=== PATIENT | male | born 1975 | race Two or more races ===

== ENCOUNTER → 2017-07-13 | Day surgery (SDC) | payer OTHER ==
[~2017-07-13] VITALS: Ht 177.8 cm; Wt 92.5 kg
[2017-07-13] VITALS (9 sets, daily range): BP systolic 111–134; BP diastolic 63–87
[~2017-07-13] MED LIST: AMLODIPINE BESYL5 MG ORAL; Cyclopentolate 1% Opth Sol 2ml LEFT EYE ONE; DiphenhydrAMINE 50mg/ml Inj IVP PRN; Ketorolac 30mg Inj IV PRN; LR 1000ml 1,000 ML IVLG SCH; Meperidine 50mg/ml Inj(FOR RIGORS ONLY) IV PRN; Norco 5mg/325mg tab ORAL PRN; POTASSIUM CHLO10 ME3 ORAL; Phenylephrine 2.5% Op 2ml Soln LEFT EYE ONE; Tropicamide 1% Opth 15ml Soln LEFT EYE ONE
--- NOTE | 2017-07-13 14:22 | Emergency Room Report ---
History of Present Illness General Chief Complaint: Eye Problems Source: Patient Present Illness HPI 42 yo male patient presents ER complaining of detached left retina. Patient was sent to ER by his physician for same day surgery. patient reports that he began seeing floaters on Wednesday while he was in [place]. Patient reports a history of seeing floaters. Patient reports that he came home Wednesday night and on Wednesday noticed floaters had increased. Patient reports that he went to [facility] on Wednesday. Patient reports that he was seen by chef de froid at that time. Patient reports being told that the back portion of his retina has folded down "like a taco". Reports been given numerous eyedrops during that time. Patient reports he was instructed to reports to [facility] for same day surgery. Patient denies fever, chest pain , shortness of breath. Patient reports history of hypertension, currently being treated with medications.. Allergies: Coded Allergies: No Known Allergies (Unverified , 07/13/17) Patient History Past Medical History: see triage record Reviewed Nursing Documentation: PMH: Agreed; PSxH: Agreed Nursing Documentation-PMH Hx Hypertension: Yes Review of Systems All Other Systems: negative except mentioned in HPI Physical Exam Vital Signs Date Time Temp Pulse Resp B/P (MAP) Pulse Ox O2 Delivery O2 Flow Rate FiO2 07/13/17 14:14 98.3 89 17 138/100 97 Room Air 98.2 Sp02 EP Interpretation: reviewed, normal General Appearance: well appearing, no apparent distress, alert, GCS 15, non- toxic Head: normocephalic, atraumatic Eyes: bilateral eye normal inspection, bilateral eye PERRL Neck: full range of motion Respiratory: lungs clear, normal breath sounds, no rhonchi, no respiratory distress, no accessory muscle use, no wheezing, speaking full sentences Cardiovascular #1: regular rate, rhythm, no edema Musculoskeletal: back normal, digits/nails normal, gait/station normal, normal range of motion, non-tender Neurologic: alert, oriented x3, responsive, motor strength/tone normal, sensory intact Psychiatric: mood/affect normal Medical Decision Making PA Attestation Dr. Maurer is my supervising Physician whom patient management has been discussed with. Diagnostic Impression: Primary Impression: Detached retina ER Course Pt. presents to the ED c/o detached retina in left eye. Vital signs: are WNL, pt. is afebrile ER COURSE: Spoke with patient's doctor Dr. Becker. requesting that CBC BMP and eyedrops be ordered. Physician requesting cyclopentolate 1% and phenylephrine 2.5% be provided to patient. Dr. Becker requesting that patient begin having medication administered to left eye at 4:00PM prior to his surgery beginning.. Wants drops placed into left eye 3x prior to surgery. Reports that it will be same-day surgery. CBC unremarkable. CMP shows Potassium 2.9, will provide oral potassium in ER. patient reports he was diagnosed with low potassium levels and is currently taking potassium supplements at home, took 30 meQ potassium earlier today. will follow up outpatient with primary care provider for further treatment. Nurse began administering eyedrops at scheduled time. Given every 10 minutes. Patient has not eaten, was instructed not to eat today. Patient scheduled for OR today at [address] Maurer. Patient will be admitted to Dr. Becker. Patient admitted to surgery. - Please note that this Emergency Department Report was dictated using [employer] product technology software, occasionally this can lead to erroneous entry secondary to interpretation by the dictation equipment. Labs Test 07/13/17 14:40 White Blood Count 9.2 K/UL (4.8-10.8) Red Blood Count 5.26 M/UL (4.70-6.10) Hemoglobin 16.3 G/DL (14.2-18.0) Hematocrit 46.5 % (42.0-52.0) Mean Corpuscular Volume 88 FL (80-99) Mean Corpuscular Hemoglobin 30.9 PG (27.0-31.0) Mean Corpuscular Hemoglobin Concent 34.9 G/DL (32.0-36.0) Red Cell Distribution Width 11.7 % (11.6-14.8) Platelet Count 262 K/UL (150-450) Mean Platelet Volume 8.3 FL (6.5-10.1) Neutrophils (%) (Auto) 51.5 % (45.0-75.0) Lymphocytes (%) (Auto) 37.1 % (20.0-45.0) Monocytes (%) (Auto) 8.6 % (1.0-10.0) Eosinophils (%) (Auto) 1.6 % (0.0-3.0) Basophils (%) (Auto) 1.1 % (0.0-2.0) Sodium Level 142 MMOL/L (136-145) Potassium Level 2.9 MMOL/L (3.5-5.1) Chloride Level 102 MMOL/L (98-107) Carbon Dioxide Level 31 MMOL/L (21-32) Anion Gap 9 mmol/L (5-15) Blood Urea Nitrogen 10 mg/dL (7-18) Creatinine 0.8 MG/DL (0.55-1.30) Estimat Glomerular Filtration Rate > 60 mL/min (>60) Glucose Level 88 MG/DL (74-106) Calcium Level 9.2 MG/DL (8.5-10.1) Pro-B-Type Natriuretic Peptide 15 pg/mL (0-125) Last Vital Signs Date Time Temp Pulse Resp B/P (MAP) Pulse Ox O2 Delivery O2 Flow Rate FiO2 07/13/17 14:14 98.3 89 17 138/100 97 Room Air 98.2 Disposition: ADMITTED INPATIENT Condition: Serious Referrals: DONOVAN MALDONADO M.D. (REFERMD) (PCP) Sanchez Ho Jul 13, 2017 14:22
[2017-07-13 15:02] LABS: BASOPHILS % (AUTO) 1.1 % (0.0-2.0); EOSINOPHILS % (AUTO) 1.6 % (0.0-3.0); HEMATOCRIT 46.5 % (42.0-52.0); HEMOGLOBIN 16.3 G/DL (14.2-18.0); LYMPHOCYTES % (AUTO) 37.1 % (20.0-45.0); MEAN CORPUSCULAR VOLUME 88 FL (80-99); MONOCYTES % (AUTO) 8.6 % (1.0-10.0); NEUTROPHILS % (AUTO) 51.5 % (45.0-75.0); PLATELET COUNT 262 K/UL (150-450); RED BLOOD COUNT 5.26 M/UL (4.70-6.10); RED CELL DISTRIBUTION WIDTH 11.7 % (11.6-14.8); WHITE BLOOD COUNT 9.2 K/UL (4.8-10.8)
[2017-07-13 15:26] LABS: ANION GAP 9 mmol/L (5-15); BLOOD UREA NITROGEN 10 mg/dL (7-18); CALCIUM 9.2 MG/DL (8.5-10.1); CARBON DIOXIDE 31 MMOL/L (21-32); CHLORIDE 102 MMOL/L (98-107); CREATININE 0.8 MG/DL (0.55-1.30); POTASSIUM 2.9 MMOL/L (3.5-5.1); SODIUM 142 MMOL/L (136-145)
[2017-07-13] MEDS: NS w/KCl 40mEq 1,000 ML IV SCH ×2 (16:44→21:31)
--- NOTE | 2017-07-13 17:56 | Pre-Procedure Note/Attestation ---
Pre-Procedure Note/Attestation Complete Prior to Procedure Planned Procedure: left Procedure Narrative: 23G PPV/SB/EL/gas vs SO left eye Indications for Procedure Pre-Operative Diagnosis: giant retinal tear and detachment left eye Attestation I attest that I discussed the nature of the procedure; its benefits; risks and complications; and alternatives (and the risks and benefits of such alternatives ), prior to the procedure, with the patient (or the patient's legal patient intake representative). I attest that, if there was a reasonable possibility of needing a blood transfusion, the patient (or the patient's legal patient intake representative) was given the [facility] standardized written summary, pursuant to the Keanu Donna Blood Safety Act ([place] Health and Safety Code # 1645, as amended). I attest that I re-evaluated the patient just prior to the surgery and that there has been no change in the patient's H&P, except as documented below: HILARY CONKLIN M.D. Jul 13, 2017 17:56
--- NOTE | 2017-07-13 18:32 | Anethesia Preoperative Eval ---
Anesthesia Pre-op PMH/ROS General Date of Evaluation: Jul 13, 2017 Time of Evaluation: 17:31 Anesthesiologist: Nina ASA Score: ASA 2 Mallampati Score Class I : Soft palate, uvula, fauces, pillars visible Class II: Soft palate, uvula, fauces visible Class III: Soft palate, base of uvula visible Class IV: Only hard plate visible Mallampati Classification: Class II Surgeon: Rosita Diagnosis: L eye etinal detouchment Surgical Procedure: L eye sckleral buckle PPV laser treatment Anesthesia History: none Family History: no anesthesia problems Allergies: Coded Allergies: No Known Allergies (Unverified , 07/13/17) Medications: see eMAR Past Medical History Cardiovascular: Reports: HTN - mild; Denies: CAD, [place], valve dz, arrhythmia, other Pulmonary: Denies: asthma, COPD, OWEN, other Gastrointestinal/Genitourinary: Reports: GERD; Denies: CRI, ESRD, other Endocrine: Denies: DM, hypothyroidism, steroids, other HEENT: Denies: cataract (L), cataract (R), glaucoma, [place] (L), [place] (R), other Hematology/Immune: Denies: anemia, DVT, bleeding disorder, other Musculoskeletal/Integumentary: Denies: OA, RA, DJD, DDD, edema, other Other: other - overweight PMH Narrative: as above, changes in vision L eye since 07/11. PSxH Narrative: Vasectomy Anesthesia Pre-op Phys. Exam Physician Exam Last Vital Signs Date Time Temp Pulse Resp B/P (MAP) Pulse Ox O2 Delivery O2 Flow Rate FiO2 07/13/17 17:24 98.2 90 16 134/87 96 Room Air 98.2 Constitutional: NAD Neurologic: CN 2-12 intact Cardiovascular: RRR Respiratory: CTA Gastrointestinal: S/NT/ND Airway Exam Mallampati Score: Class II MO: full Neck: flexible Teeth: intact Dentures: no upper, no lower Anesthesia Pre-op A/P Labs Hematology Test 07/13/17 14:40 White Blood Count 9.2 K/UL (4.8-10.8) Red Blood Count 5.26 M/UL (4.70-6.10) Hemoglobin 16.3 G/DL (14.2-18.0) Hematocrit 46.5 % (42.0-52.0) Mean Corpuscular Volume 88 FL (80-99) Mean Corpuscular Hemoglobin 30.9 PG (27.0-31.0) Mean Corpuscular Hemoglobin Concent 34.9 G/DL (32.0-36.0) Red Cell Distribution Width 11.7 % (11.6-14.8) Platelet Count 262 K/UL (150-450) Mean Platelet Volume 8.3 FL (6.5-10.1) Neutrophils (%) (Auto) 51.5 % (45.0-75.0) Lymphocytes (%) (Auto) 37.1 % (20.0-45.0) Monocytes (%) (Auto) 8.6 % (1.0-10.0) Eosinophils (%) (Auto) 1.6 % (0.0-3.0) Basophils (%) (Auto) 1.1 % (0.0-2.0) Chemistry Test 07/13/17 14:40 Sodium Level 142 MMOL/L (136-145) Potassium Level 2.9 MMOL/L (3.5-5.1) L Chloride Level 102 MMOL/L (98-107) Carbon Dioxide Level 31 MMOL/L (21-32) Anion Gap 9 mmol/L (5-15) Blood Urea Nitrogen 10 mg/dL (7-18) Creatinine 0.8 MG/DL (0.55-1.30) Estimat Glomerular Filtration Rate > 60 mL/min (>60) Glucose Level 88 MG/DL (74-106) Calcium Level 9.2 MG/DL (8.5-10.1) Pro-B-Type Natriuretic Peptide 15 pg/mL (0-125) Studies Pre-op Studies: EKG - NSR Risk Assessment & Plan Assessment: ASA 2 Plan: GA with LMA + retro bulbar block by surgeon Status Change Before Surgery: No Pre-Antibiotics Drug: none DAYAN ZIEGLER M.D. Jul 13, 2017 18:32
--- NOTE | 2017-07-13 20:16 | Brief Operative Note ---
Immediate Post Operative Note Operative Note Chief Complaint: blurred vision Pre-op Diagnosis: giant retinal tear and detachment left eye Procedure: 23G PPV/SB/EL/SO left eye Post-op Diagnosis: same Post-op Diagnosis: same as pre-op Findings: consistent w/pre-op dx studies Surgeon: Rosita Anesthesia: general Specimen: none Complications: none Condition: stable Fluids: <500cc Estimated Blood Loss: none Drains: none Implant(s) used?: Yes HILARY CONKLIN M.D. Jul 13, 2017 20:16
--- NOTE | 2017-07-13 20:27 | Immediate Post-Op Evaluation ---
Immediate Post-Op Evalulation Immediate Post-Op Evalulation Procedure: L Eye scleral buckle, PPV silicon oil injection, laser treatment Date of Evaluation: Jul 13, 2017 Time of Evaluation: 20:26 IV Fluids: 400 Blood Products: none Estimated Blood Loss: min Urinary Output: none Blood Pressure Systolic: 114 Blood Pressure Diastolic: 73 Pulse Rate: 88 Respiratory Rate: 22 O2 Sat by Pulse Oximetry: 99 Temperature (Fahrenheit): 98.3 Pain Score (1-10): 1 Nausea: No Vomiting: No Complications none Patient Status: reacts, patent, none Hydration Status: adequate DAYAN ZIEGLER M.D. Jul 13, 2017 20:27
--- NOTE | 2017-07-13 21:15 | Operative Note - Dictated ---
DATE OF OPERATION: 07/13/2017 SURGEON: John Becker M.D. PREOPERATIVE DIAGNOSIS: Giant retinal tear and detachment, left eye. POSTOPERATIVE DIAGNOSIS: Giant retinal tear and detachment, left eye. NAME OF OPERATION: A 23-gauge pars plana vitrectomy, scleral buckle, endolaser, and silicone oil left eye. ANESTHESIA: Local. BLOOD LOSS: None. COMPLICATIONS: None. INDICATIONS: The patient is a 42-year-old male with a history of blurred vision in his left eye. He was found to have a giant retinal tear and detachment. The findings were discussed with the patient as well as risks, benefits, and alternatives to the above-named procedure. The patient wishes to proceed with surgery. The patient understands that the risks include, but are not limited to, loss of vision, loss of the eye. Informed consent was obtained. DESCRIPTION OF THE PROCEDURE: On the day of the procedure, the left eye was noted to be the operative eye and marked. The patient received three sets of the standard preoperative eye drops in the holding area. The patient was then brought to the operating room with appropriate anesthesia and monitors were placed. The left eye was again identified as the operative eye. During time-out, the operative eye was patched and shielded. The patient underwent general and endotracheal anesthesia administered by the anesthesiologist. An additional retrobulbar block consisting of a 1:1 mixture of 2% lidocaine without epinephrine and 0.75% bupivacaine was administered. The operative eye was then prepped and draped in the usual sterile ophthalmic fashion. A lid speculum was placed in the operative eye. A 360-degree conjunctival peritomy was then performed with nasal and temporal relaxing incisions. The Tenon's capsule was retracted using Ortiz tenotomy scissors. The rectus muscles were isolated and looped using 2-0 silk suture. A #42 band was then passed underneath the rectus muscles and fastened superonasally with a #70 sleeve. The buckle was sutured in all four quadrants using 5-0 nylon. The buckle was tightened to the appropriate tension and the ends trimmed. A 22-gauge cannulas were then placed with the infusion located inferotemporally. A standard 3 port pars plana vitrectomy was then performed. There was a giant retinal tear extending superiorly for greater than 180 degrees with a retinal fold it over. The vitreous skirt was trimmed and peripheral was used to unpull the retina and flatten it. The subretinal fluid was drained through the giant retinal tear. An air-fluid exchange was then performed and then the residual peripheral was exchanged for 1000 centistokes silicone oil. Endolaser was applied to the edge of the giant retinal tear and in 360 degree barricade fashion. The 23-gauge cannulas were then removed. The wounds were sutured using 7-0 Vicryl. The traction sutures were removed. The conjunctival peritomy was sutured using 7-0 Vicryl. The wounds were checked for leakage and found to be watertight. Intra-ocular pressure was palpated and found to be within normal limits. The patient then received subconjunctival injections of Ancef and dexamethasone as well as additional posterior sub-Tenon's Marcaine. The lid speculum and drapes were then removed. Maxitrol ointment and atropine eye drops were applied to the eye. The eye was patched and shielded. The patient was then awakened from general endotracheal anesthesia by the anesthesiologist. The patient tolerated the procedure well and was returned to the postoperative care area in good condition. John Becker M.D. DR: Ana Rosa JOB#: [id number] CC:
[2017-07-14 08:17] VITALS: BP 136/72
--- NOTE | 2017-07-14 08:17 | 48 Hour Post Anesthesia Eval ---
Post Anesthesia Evaluation Procedure: L Eye scleral buckle, PPV silicon oil injection, laser treatment Date of Evaluation: Jul 13, 2017 Time of Evaluation: 20:10 Blood Pressure Systolic: 136 0: 72 Pulse Rate: 68 Respiratory Rate: 20 Temperature (Fahrenheit): 97.8 O2 Sat by Pulse Oximetry: 98 Airway: patent Nausea: No Vomiting: No Pain Intensity: 2 Hydration Status: adequate Cardiopulmonary Status: stable Mental Status/LOC: patient returned to baseline Follow-up Care/Observations: n/a Post-Anesthesia Complications: none Follow-up care needed: ready to discharge DAYAN ZIEGLER M.D. Jul 14, 2017 08:17
== END | disposition home or self-care (01) ==
LOC: EMR 14:23 → EDBEDREQ 15:17 → SUR 16:04 → EDBEDREQ 17:28
DX: H33.032 Retinal detachment with giant retinal tear, left eye (principal); I10 Essential (primary) hypertension; K21.9 Gastro-esophageal reflux disease without esophagitis
CPT/HCPCS: 36415; 80048; 83880; 85025; 99284; J8499

== ENCOUNTER 2018-01-19 09:35 | Day surgery (SDC) | payer OTHER ==
[2018-01-19] VITALS (7 sets, daily range): BP systolic 122–143; BP diastolic 8–92
[~2018-01-19] VITALS: Ht 177.8 cm; Wt 86.2 kg
[~2018-01-19 09:35] MED LIST changes: -Cyclopentolate 1% Opth Sol 2ml LEFT EYE ONE; -DiphenhydrAMINE 50mg/ml Inj IVP PRN; -Ketorolac 30mg Inj IV PRN; -LR 1000ml 1,000 ML IVLG SCH; -Meperidine 50mg/ml Inj(FOR RIGORS ONLY) IV PRN; -Norco 5mg/325mg tab ORAL PRN; -Phenylephrine 2.5% Op 2ml Soln LEFT EYE ONE; -Tropicamide 1% Opth 15ml Soln LEFT EYE ONE
[2018-01-19] MEDS ORDERED: Cyclopentolate 1% Opth Sol 2ml ONE (10:06)
[2018-01-19] MEDS ORDERED: Phenylephrine 2.5% Op 2ml Soln ONE (10:07)
[2018-01-19] MEDS: Cyclopentolate 1% Opth Sol 2ml LEFT EYE SCH ×3 (10:10→10:36)
[2018-01-19] MEDS: Phenylephrine 2.5% Op 2ml Soln LEFT EYE SCH ×3 (10:10→10:36)
[2018-01-19] MEDS ORDERED: Kenalog-40 1ml Vial ONE (10:53)
[2018-01-19] MEDS ORDERED: EPINEPHrine 1mg/1ml Amp ONE (10:53)
[2018-01-19] MEDS ORDERED: Lidocaine 2% MPF 5ml Vial INJ ONE (10:53)
[2018-01-19] MEDS ORDERED: Maxitrol Opth Oint 3.5gm ONE (10:54)
[2018-01-19] MEDS ORDERED: Goniotaire 2.5% Opth Soln - 15ml ONE (10:54)
[2018-01-19] MEDS ORDERED: BSS 15ml BTL ONE (10:54)
[2018-01-19] MEDS ORDERED: BSS 500ml btl ONE (10:54)
[2018-01-19] MEDS ORDERED: Dexamethasone 4mg/ml vial ONE (10:54)
[2018-01-19] MEDS ORDERED: Bupivacaine 0.75% 30ml vial INJ ONE (10:55)
[2018-01-19] MEDS ORDERED: Povidone-Iodine 5% opth solution ONE (10:55)
[2018-01-19] MEDS ORDERED: Tetracaine 0.5% Opth 4ml Soln ONE (10:55)
[2018-01-19] MEDS ORDERED: LR 1000ml 1,000 ML IVLG SCH (11:21)
--- NOTE | 2018-01-19 11:21 | Anethesia Preoperative Eval ---
Anesthesia Pre-op PMH/ROS General Date of Evaluation: Jan 19, 2018 Anesthesiologist: Merrill ASA Score: ASA 2 Mallampati Score Class I : Soft palate, uvula, fauces, pillars visible Class II: Soft palate, uvula, fauces visible Class III: Soft palate, base of uvula visible Class IV: Only hard plate visible Mallampati Classification: Class II Surgeon: Rosita Diagnosis: Left eye retinal detachment Surgical Procedure: Left eye vitrectomy Anesthesia History: none Family History: no anesthesia problems Allergies: Coded Allergies: No Known Allergies (Unverified , 07/13/17) Medications: see eMAR Patient NPO?: Yes NPO Date: Jan 19, 2018 NPO Time: 22:00 Past Medical History Cardiovascular: Reports: HTN; Denies: CAD, [place], valve dz, arrhythmia, other Pulmonary: Denies: asthma, COPD, OWEN, other Gastrointestinal/Genitourinary: Reports: GERD; Denies: CRI, ESRD, other Neurologic/Psychiatric: Denies: dementia, CVA, depression/anxiety, TIA, other Endocrine: Denies: DM, hypothyroidism, steroids, other HEENT: Denies: cataract (L), cataract (R), glaucoma, [place] (L), [place] (R), other Hematology/Immune: Denies: anemia, DVT, bleeding disorder, other Musculoskeletal/Integumentary: Denies: OA, RA, DJD, DDD, edema, other PSxH Narrative: Left eye vitrectomy Anesthesia Pre-op Phys. Exam Physician Exam Last Vital Signs Date Time Temp Pulse Resp B/P (MAP) Pulse Ox O2 Delivery O2 Flow Rate FiO2 01/19/18 10:27 98.9 102 20 143/92 98 Room Air Constitutional: NAD Cardiovascular: RRR Respiratory: CTA Airway Exam Mallampati Score: Class II MO: full ROM: full Teeth: intact Anesthesia Pre-op A/P Labs see chart Studies Pre-op Studies: EKG - sr Risk Assessment & Plan Assessment: ASA II Plan: MAC Status Change Before Surgery: No Pre-Antibiotics Drug: N/A Era Pitts MD Jan 19, 2018 11:21
[2018-01-19] MEDS ORDERED: DiphenhydrAMINE 50mg/ml Inj IVP PRN (11:30)
[2018-01-19] MEDS ORDERED: fentaNYL 100 mcg/2 mL IV PRN (11:30)
[2018-01-19] MEDS ORDERED: Midazolam 2mg/2ml Inj ONE (11:46)
[2018-01-19] MEDS ORDERED: DiphenhydrAMINE 50mg/ml Inj ONE (11:46)
[2018-01-19] MEDS ORDERED: Lidocaine 1% MPF 10mg/ml 5ml ONE (11:46)
[2018-01-19] MEDS ORDERED: fentaNYL 100 mcg/2 mL IV ONE (11:46)
[2018-01-19] MEDS ORDERED: Propofol 200mg/20ml IV ONE (11:46)
[2018-01-19] MEDS ORDERED: NS Irrig 1000ml ONE (12:03)
[2018-01-19] MEDS ORDERED: Sterile Water Irrig 1000ml IRRIG ONE (12:03)
[2018-01-19] MEDS ORDERED: LR 1000ml ONE (12:03)
--- NOTE | 2018-01-19 12:16 | Pre-Procedure Note/Attestation ---
Pre-Procedure Note/Attestation Complete Prior to Procedure Planned Procedure: left Procedure Narrative: 23 G PP/SO removal/EL/gas OS Indications for Procedure Pre-Operative Diagnosis: history of GRT/RD Attestation I attest that I discussed the nature of the procedure; its benefits; risks and complications; and alternatives (and the risks and benefits of such alternatives ), prior to the procedure, with the patient (or the patient's legal outside dealer sales representative). I attest that, if there was a reasonable possibility of needing a blood transfusion, the patient (or the patient's legal outside dealer sales representative) was given the [facility] standardized written summary, pursuant to the Keanu Donna Blood Safety Act ([place] Health and Safety Code # 1645, as amended). I attest that I re-evaluated the patient just prior to the surgery and that there has been no change in the patient's H&P, except as documented below: John Becker MD Jan 19, 2018 12:16
--- NOTE | 2018-01-19 13:25 | Brief Operative Note ---
Immediate Post Operative Note Operative Note Chief Complaint: blurred vision left eye Pre-op Diagnosis: history of GRT/RD Procedure: 23G PPV/SO removal/EL/20%SF6 left eye Post-op Diagnosis: history of GRT/RD Post-op Diagnosis: same as pre-op Findings: consistent w/pre-op dx studies Surgeon: John Becker Anesthesia: local Specimen: none Complications: none Condition: stable Fluids: <500cc Estimated Blood Loss: none Drains: none Implant(s) used?: No John Becker MD Jan 19, 2018 13:25
--- NOTE | 2018-01-19 13:25 | Immediate Post-Op Evaluation ---
Immediate Post-Op Evalulation Immediate Post-Op Evalulation Procedure: Left eye vitrectomy Date of Evaluation: Jan 19, 2018 Time of Evaluation: 13:26 IV Fluids: 600 Blood Products: 0 Estimated Blood Loss: 0 Urinary Output: 0 Blood Pressure Systolic: 122 Blood Pressure Diastolic: 82 Pulse Rate: 90 Respiratory Rate: 16 O2 Sat by Pulse Oximetry: 97 Temperature (Fahrenheit): 97 Pain Score (1-10): 0 Nausea: No Vomiting: No Complications 0 Patient Status: awake, reacts, patent, none Hydration Status: adequate Drug: N/A Era Pitts MD Jan 19, 2018 13:25
--- NOTE | 2018-01-19 13:26 | 48 Hour Post Anesthesia Eval ---
Post Anesthesia Evaluation Procedure: Left eye vitrectomy Date of Evaluation: Jan 19, 2018 Airway: patent Nausea: No Vomiting: No Pain Intensity: 0 Hydration Status: adequate Cardiopulmonary Status: at baseline Mental Status/LOC: patient returned to baseline Post-Anesthesia Complications: 0 Follow-up care needed: ready to discharge Era Pitts MD Jan 19, 2018 13:26
[2018-01-19] MEDS ORDERED: Norco 5mg/325mg tab ORAL PRN (13:30)
--- NOTE | 2018-01-19 22:00 | Operative Note - Dictated ---
DATE OF OPERATION: 01/19/2018 SURGEON: John Becker M.D. PREOPERATIVE DIAGNOSIS: History of retinal detachment, left eye. POSTOPERATIVE DIAGNOSIS: History of retinal detachment, left eye. NAME OF OPERATION: A 23-gauge pars plana vitrectomy, silicone oil removal, endolaser, and 20% SF6 gas, left eye. ANESTHESIA: Local. BLOOD LOSS: None. COMPLICATIONS: None. INDICATIONS: The patient is a 42-year-old male with a history of retinal tear and detachment. His retina has remained stable underneath the silicone oil and he requests silicone oil removal for the visual rehabilitation. The findings were discussed with the patient as well as the risks, benefits, and alternatives to the above-named procedure and the patient wishes to proceed with surgery. The patient understands that the risks include, but are not limited to, loss of vision, loss of the eye. Informed consent was obtained. DESCRIPTION OF THE PROCEDURE: On the day of the procedure, the left eye was noted to be the operative eye and marked. The patient received 3 sets of the standard preoperative eye drops in the holding area. The patient was then brought to the operating room with appropriate anesthesia monitors placed. The left eye was again identified as the operative eye during time-out. The nonoperative eye was patched and shielded. The operative eye then received a retrobulbar block consisting of 1:1 mixture of 2% lidocaine without epinephrine and 0.75% bupivacaine for a total of 5 mL. Anesthesia and akinesia were noted to have been obtained. The operative eye was then prepped and draped in the usual sterile ophthalmic fashion. A lid speculum was placed in the operative eye. A 22-gauge cannulas were placed with infusion located inferotemporally. The silicone oil was then removed. A paracentesis was made at the 12 o'clock meridian and the anterior chamber was rinsed out using balanced salt solution on a cannula. Endolaser was applied to supplement the previous laser barricade. The retina was noted to be flat. Four air-fluid exchanges were then performed and 20% SF6 gas was then infused into the eye. The 23-gauge cannulas were then removed. The paracentesis was hydrated using balanced salt solution on a cannula. The wounds were checked for leakage and found to be watertight. The intraocular pressure was palpated and found to be within normal limits. The patient then received subconjunctival injections of vancomycin and dexamethasone. The lid speculum and drapes were then removed. Maxitrol ointment and atropine eye drops were applied to the eye. The eye was patched and shielded. The patient tolerated the procedure well and was returned to the postoperative care area in good condition. John Becker M.D. DR: JOIE JOB#: [id number] CC:
== END 2018-01-19 14:20 | disposition home or self-care (01) ==
LOC: SUR 09:35
DX: H33.22 Serous retinal detachment, left eye (principal); I10 Essential (primary) hypertension; K21.9 Gastro-esophageal reflux disease without esophagitis; J45.909 Unspecified asthma, uncomplicated; Z87.19 Personal history of other diseases of the digestive system; H18.609 Keratoconus, unspecified, unspecified eye
CPT/HCPCS: 67121; J0171; J0690; J1100; J1200; J2250; J2704; J3010; J3490; 94003; 94150

== ENCOUNTER 2018-03-02 06:19 | Day surgery (SDC) | payer OTHER ==
[~2018-03-02] VITALS: Ht 177.8 cm; Wt 88.0 kg
[2018-03-02] VITALS (10 sets, daily range): BP systolic 123–151; BP diastolic 59–89
[2018-03-02] MEDS: Cyclopentolate 1% Opth Sol 2ml LEFT EYE SCH ×3 (07:15→08:12)
[2018-03-02] MEDS: Phenylephrine 2.5% Op 2ml Soln LEFT EYE SCH ×3 (07:15→08:12)
[2018-03-02] MEDS ORDERED: Kenalog-40 1ml Vial ONE (08:37)
[2018-03-02] MEDS ORDERED: Lidocaine 2% MPF 5ml Vial INJ ONE (08:37)
[2018-03-02] MEDS ORDERED: EPINEPHrine 1mg/1ml Amp ONE (08:37)
[2018-03-02] MEDS ORDERED: Tetracaine 0.5% Opth 4ml Soln ONE (08:38)
[2018-03-02] MEDS ORDERED: Maxitrol Opth Oint 3.5gm ONE (08:38)
[2018-03-02] MEDS ORDERED: Goniotaire 2.5% Opth Soln - 15ml ONE (08:38)
[2018-03-02] MEDS ORDERED: BSS 500ml btl ONE (08:38)
[2018-03-02] MEDS ORDERED: BSS 15ml BTL ONE (08:38)
[2018-03-02] MEDS ORDERED: Povidone-Iodine 5% opth solution ONE (08:38)
[2018-03-02] MEDS ORDERED: Bupivacaine 0.75% 30ml vial INJ ONE (08:39)
[2018-03-02] MEDS ORDERED: Sodium Hyaluronate 10 mg/ml 0.85ml ONE (08:39)
--- NOTE | 2018-03-02 08:44 | Anethesia Preoperative Eval ---
Anesthesia Pre-op PMH/ROS General Date of Evaluation: Mar 02, 2018 Time of Evaluation: 08:40 Anesthesiologist: Nelida Lama CRNA ASA Score: ASA 2 Mallampati Score Class I : Soft palate, uvula, fauces, pillars visible Class II: Soft palate, uvula, fauces visible Class III: Soft palate, base of uvula visible Class IV: Only hard plate visible Mallampati Classification: Class II Surgeon: Rosita Diagnosis: Retinal detachment Surgical Procedure: LEFT eye vitrectomy, membrane stripping, endolaser, silicone oil, lensectom Anesthesia History: none Family History: no anesthesia problems Allergies: Coded Allergies: No Known Allergies (Unverified , 07/13/17) Medications: see eMAR Patient NPO?: Yes NPO Date: Mar 02, 2018 NPO Time: 00:00 Past Medical History Cardiovascular: Reports: HTN; Denies: CAD, SC, valve dz, arrhythmia, other Pulmonary: Reports: asthma - Childhood, COPD, OWEN, other Gastrointestinal/Genitourinary: Denies: GERD, CRI, ESRD, other Neurologic/Psychiatric: Denies: dementia, CVA, depression/anxiety, TIA, other Endocrine: Denies: DM, hypothyroidism, steroids, other HEENT: Reports: other - LEFT eye retinal detachment; allergic rhinitis; Denies: cataract (L), cataract (R), glaucoma, MENTASTA (L), MENTASTA (R) Hematology/Immune: Reports: other - hypokalemia; Denies: anemia, DVT, bleeding disorder Musculoskeletal/Integumentary: Reports: other - Back lipoma; Denies: OA, RA, DJD, DDD, edema PMH Narrative: as above PSxH Narrative: LEFT eye surery x 2; thumb surgery Anesthesia Pre-op Phys. Exam Physician Exam Last Vital Signs Date Time Temp Pulse Resp B/P (MAP) Pulse Ox O2 Delivery O2 Flow Rate FiO2 03/02/18 08:27 Room Air 03/02/18 08:07 98.6 75 18 132/87 98 Constitutional: NAD Neurologic: CN 2-12 intact Cardiovascular: RRR Airway Exam Mallampati Score: Class II MO: full Neck: no limitations TMD: > 3 FB ROM: full Teeth: intact Dentures: no upper, no lower Anesthesia Pre-op A/P Labs reviewed, see chart Studies Pre-op Studies: EKG - NSR Risk Assessment & Plan Assessment: ASA 2, ok to proceed Plan: MAC Status Change Before Surgery: No Pre-Antibiotics Given Within 1 Hr of Incision: No Nelida Lama CRNA Mar 02, 2018 08:44
[2018-03-02] MEDS ORDERED: Midazolam 2mg/2ml Inj ONE (08:52)
[2018-03-02] MEDS ORDERED: fentaNYL 100 mcg/2 mL IV ONE (08:53)
--- NOTE | 2018-03-02 08:53 | Pre-Procedure Note/Attestation ---
Pre-Procedure Note/Attestation Complete Prior to Procedure Planned Procedure: left Procedure Narrative: PPV/PPL/MP/EL/SO OS Indications for Procedure Pre-Operative Diagnosis: RD with PVR Attestation I attest that I discussed the nature of the procedure; its benefits; risks and complications; and alternatives (and the risks and benefits of such alternatives ), prior to the procedure, with the patient (or the patient's legal service support representative). I attest that, if there was a reasonable possibility of needing a blood transfusion, the patient (or the patient's legal service support representative) was given the [facility] standardized written summary, pursuant to the Keanu Dundas Blood Safety Act ([place] Health and Safety Code # 1645, as amended). I attest that I re-evaluated the patient just prior to the surgery and that there has been no change in the patient's H&P, except as documented below: John Becker MD Mar 02, 2018 08:53
[2018-03-02] MEDS ORDERED: Propofol 200mg/20ml IV ONE (08:54)
[2018-03-02] MEDS ORDERED: Dexamethasone 4mg/ml vial ONE (09:04)
[2018-03-02] MEDS ORDERED: Acetylcholine Injection (OR) ONE (09:04)
[2018-03-02] MEDS ORDERED: DiphenhydrAMINE 50mg/ml Inj IVP PRN (09:45)
--- NOTE | 2018-03-02 10:33 | Brief Operative Note ---
Immediate Post Operative Note Operative Note Chief Complaint: blurred vision OS Pre-op Diagnosis: RD with PVR Procedure: PPV/PPL/MP/EL/SO left eye Post-op Diagnosis: same Post-op Diagnosis: same as pre-op Findings: consistent w/pre-op dx studies Surgeon: John Becker Anesthesia: local Specimen: none Complications: none Condition: stable Fluids: <500cc Estimated Blood Loss: none Drains: none Implant(s) used?: Yes John Becker MD Mar 02, 2018 10:33
--- NOTE | 2018-03-02 10:38 | Immediate Post-Op Evaluation ---
Immediate Post-Op Evalulation Immediate Post-Op Evalulation Procedure: LT eye vitrectomy, membrane stripping, silicone oil, endolaser, lensectomy Date of Evaluation: Mar 02, 2018 Time of Evaluation: 10:29 IV Fluids: LR 500 ml Blood Pressure Systolic: 128 Blood Pressure Diastolic: 89 Pulse Rate: 85 Respiratory Rate: 21 O2 Sat by Pulse Oximetry: 98 Temperature (Fahrenheit): 98.2 Pain Score (1-10): 0 Nausea: No Vomiting: No Complications none Patient Status: awake, patent Given Within 1 Hr of Incision: Nelida Boykin CRNA Mar 02, 2018 10:38
[2018-03-02] MEDS ORDERED: Norco 5mg/325mg tab ORAL PRN (10:45)
--- NOTE | 2018-03-02 12:40 | 48 Hour Post Anesthesia Eval ---
Post Anesthesia Evaluation Procedure: LT eye vitrectomy, membrane stripping, silicone oil, endolaser, lensectomy Date of Evaluation: Mar 02, 2018 Time of Evaluation: 11:18 Blood Pressure Systolic: 123 - 85 0: 85 Pulse Rate: 80 Respiratory Rate: 20 Temperature (Fahrenheit): 98.0 O2 Sat by Pulse Oximetry: 98 Airway: patent Nausea: No Vomiting: No Pain Intensity: 0 Hydration Status: adequate Cardiopulmonary Status: stable Mental Status/LOC: patient returned to baseline Follow-up Care/Observations: Per Opthamology Post-Anesthesia Complications: none Follow-up care needed: ready to discharge Nelida Lama CRNA Mar 02, 2018 12:40
--- NOTE | 2018-03-02 20:00 | Operative Note - Dictated ---
DATE OF OPERATION: 03/02/2018 SURGEON: John Becker M.D. PREOPERATIVE DIAGNOSIS: Retinal detachment with proliferative vitreoretinopathy, left eye. POSTOPERATIVE DIAGNOSIS: Retinal detachment with proliferative vitreoretinopathy, left eye. NAME OF OPERATION: Pars plana vitrectomy, pars plana lensectomy, membrane peel, endolaser, and silicone oil, left eye. ANESTHESIA: Local. BLOOD LOSS: None. COMPLICATIONS: None. INDICATIONS: The patient is a 43-year-old male with a history of giant retinal tear. 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 He also has a significant cataract. The findings were discussed with the patient as well as the risks, benefits, and alternatives to the above-named procedure, and the patient wishes to proceed with surgery. The patient understands that the risks include, but are not limited to, loss of vision and loss of the eye. Informed consent was obtained. DESCRIPTION OF PROCEDURE: On the day of procedure, the left eye was noted to be the operative eye and marked. The patient received three sets of the standard preoperative eye drops in the holding area. The patient was then brought to the operating room with appropriate anesthesia monitors were placed. The left eye was again identified as the operative eye during time-out. The nonoperative eye was patched and shielded. The operative eye then received a retrobulbar block consisting of 1:1 mixture of 2% lidocaine without epinephrine and 0.75% bupivacaine for a total of 5 mL. Anesthesia and akinesia were noted to have been obtained. The operative eye was then prepped and draped in the usual sterile ophthalmic fashion. A lid speculum was placed in the operative eye. A 23-gauge cannulas were placed inferotemporally and superotemporally. A limited conjunctival peritomy was performed superonasally and an MVR blade was used to make a sclerotomy in that quadrant. A paracentesis was made at the 11 o'clock and 1 o'clock meridian, and anterior chamber was rinsed out using balanced salt solution on a cannula. The phaco fragmatome was then used to remove the cataract. Intra-ocular forceps were then used to grasp the remaining capsule and removed it from the eye. A standard three-port pars plana vitrectomy was then performed. Intra-ocular forceps were then used to peel any membranes present at the vitreous base. Endodiathermy was then used to noam the nasal retinotomy and Healon was used to fill the anterior chamber and an inferior peripheral iridectomy was performed with the cutter. An air-fluid exchange was then performed and the subretinal fluid was drained through the retinotomy. Endolaser was applied to the retinotomy and in 360 degree barricade fashion. 5000 centistokes silicone oil was then infused into the eye. The anterior chamber was rinsed out using balanced salt solution on a cannula. Please note that prior to this, Miochol was used to constrict the pupil. The 23-gauge cannulas were then removed. The sclerotomies and the conjunctival peritomy were sutured using 7-0 Vicryl. Paracenteses were hydrated using balanced salt solution on a cannula. The wounds were checked for leakage and found to be watertight. Intra-ocular pressure was palpated and found to be within normal limits. The patient then received subconjunctival injections of vancomycin and dexamethasone. The lid speculum and drapes were then removed. Maxitrol ointment was applied to the eye and the eye was patched and shielded. The patient tolerated the procedure well and was returned to the postoperative care area in good condition. John Becker M.D. DR: BRENNA JOB#: [id number] CC:
== END 2018-03-02 11:30 | disposition home or self-care (01) ==
LOC: SUR 06:19
DX: H33.42 Traction detachment of retina, left eye (principal); J30.9 Allergic rhinitis, unspecified; J44.9 Chronic obstructive pulmonary disease, unspecified; I10 Essential (primary) hypertension; G47.33 Obstructive sleep apnea (adult) (pediatric); H18.609 Keratoconus, unspecified, unspecified eye
CPT/HCPCS: 66850; 67042; J0171; J0690; J1100; J2250; J2704; J3010; J3490; 94003; 94150